=== PATIENT | male | born 1985 | race Caucasian/White ===

== ENCOUNTER 2018-10-25 17:09 | Emergency (ER) | payer SELFPAY ==
--- NOTE | 2018-10-25 17:43 | EDM.PDOC ---
<Soco Childers - Last Filed: 10/25/18 17:37> ED HPI GENERAL MEDICAL PROBLEM - General Chief Complaint: Skin Complaint Stated Complaint: LOWER LIP Time Seen by Provider: 10/25/18 17:35 Source of Information: Reports: Patient, RN Notes Reviewed History Limitations: Reports: No Limitations - History of Present Illness INITIAL COMMENTS - FREE TEXT/NARRATIVE: Clayton is a 33 year old male who presents to the ED today for evaluation of skin changes to his lips and surrounding skin. He states that about a week ago he started to have severe chapped lips, but they started to weep a yellow fluid. He states that each morning he wakes up with "honey colored crust" around his lips and face. He has noticed the dry skin and redness has spread into his moustache and bowden. Patient states that his skin itches severely and it is tingly at times. He has treated with carmex, coconut oil, and neosporin with no improvement. 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 He is allergic to penicillin. Lower Lip Pain Score (Numeric/FACES): 1 - Related Data Allergies Allergy/AdvReac Type Severity Reaction Status Date / Time Penicillins Allergy Swollen Verified 10/25/18 17:22 Eyes Home Meds: Home Meds Mupirocin Oint [Bactroban Oint] 22 gm TP BID #1 tube 10/25/18 [Rx] Past Medical History - Past Surgical History Musculoskeletal Surgical History: Reports: Other (See Below) Other Musculoskeletal Surgeries/Procedures:: internal fixation on pelvis, left left surgery and impant. Social & Family History - Tobacco Use Smoking Status *Q: Former Smoker Used Tobacco, but Quit: Yes Month/Year Tobacco Last Used: 6 years ago - Caffeine Use Caffeine Use: Reports: Coffee - Recreational Drug Use Recreational Drug Use: No ED ROS GENERAL - Review of Systems Review Of Systems: ROS reveals no pertinent complaints other than HPI. ED EXAM, SKIN/RASH Exam Limited By: No Limitations General Appearance: Alert, WD/WN, No Apparent Distress Eye Exam: Bilateral Eye: EOMI, PERRL Ears: Normal External Exam, Normal Canal, Hearing Grossly Normal, Normal TMs Nose: Normal Inspection, Normal Mucosa, No Blood Throat/Mouth: Normal Teeth, Normal Gums, Normal Oropharynx, Normal Voice, No Airway Compromise, Inflammation (to the lips). No: Dysphagia Head: Atraumatic, Normocephalic Neck: Normal Inspection, Supple, Non-Tender, Full Range of Motion Neurological: Alert, Oriented, Normal Cognition Psychiatric: Normal Affect, Normal Mood Skin: Erythema, Other (lips and surrounding skin are flakey, dry, red and inflammed. redness extends into the upper and lower facial hair. patient reports that this skin does weep yellow fluid and hardens to a crust. ) Location, Skin: Face Characteristics: Erythematous Associated features: Scaling, Inflammation, Crusting, Weeping Course - Vital Signs Last Recorded V/S: Last Vital Signs Temp 99.7 F 10/25/18 17:19 Pulse 115 H 10/25/18 17:19 Resp 16 10/25/18 17: BP 155/90 H 10/25/18 17:19 Pulse Ox 100 10/25/18 17:19 - Orders/Labs/Meds Meds: Medications Discontinued Medications Generic Name Dose Route Start Last Admin Trade Name Freq PRN Reason Stop Dose Admin Mupirocin 22 gm 10/25/18 18:33 10/25/18 18:48 Bactroban Oint TOP 10/25/18 18:34 1 dose ONETIME ONE Administration Departure - Departure Disposition: Home, Self-Care 01 Clinical Impression: Impetigo any site - Discharge Information Prescriptions: Mupirocin Oint [Bactroban Oint] 22 gm TP BID #1 tube Instructions: Impetigo, Adult Referrals: PCP,None [Primary Care Provider] - Forms: ED Department Discharge Additional Instructions: Apply the mupirocin ointment to the affected area twice a day for the next 7 days. If you come in contact with the lesion please wash your hands since this can spread easily. Monitor for any new or worsening symptoms. If so return back to the ED. <Antony Hunt O - Last Filed: 10/25/18 21:40> ED ROS GENERAL - Review of Systems Review Of Systems: See Below ED EXAM, SKIN/RASH Exam: See Below Course - Orders/Labs/Meds Meds: Medications Discontinued Medications Generic Name Dose Route Start Last Admin Trade Name Freq PRN Reason Stop Dose Admin Mupirocin 22 gm 10/25/18 18:33 10/25/18 18:48 Bactroban Oint TOP 10/25/18 18:34 1 dose ONETIME ONE Administration - Re-Assessments/Exams Free Text/Narrative Re-Assessment/Exam: I have personally evaluated the patient and obtained HPI. Agree with physical findings and HPI per Soco CHAMBERS. Patient has impetigo and will be started on mupirocin ointment. Return precautions discussed with the patient. Patient had no further questions or concerns. Departure - Departure Time of Disposition: 18:01 Condition: Good
[2018-10-25] MEDS ORDERED: Mupirocin Oint 22 GM Tube TOP ONE (18:33)
== END 2018-10-25 18:50 | disposition home or self-care (01) ==
LOC: JD.ED 17:09
DX: L01.00 Impetigo, unspecified (principal); Z88.0 Allergy status to penicillin; Z87.891 Personal history of nicotine dependence
CPT/HCPCS: 99282; A9270